=== PATIENT | female | born 1980 | race Caucasian/White ===

== ENCOUNTER 2024-11-05 15:03 | Emergency (ER) | payer OTHER ==
[~2024-11-05] VITALS: Ht 170.2 cm; Wt 72.0 kg
[2024-11-05 15:15] VITALS: O2SAT 100
[2024-11-05] MEDS: METOCLOPRAMIDE HCL 10MG TABLET PO ONE (18:18)
[2024-11-05] MEDS: ACETAMINOPHEN 325MG TABLET PO ONE (18:18)
[2024-11-05] MEDS: DIPHENHYDRAMINE 25MG CAPSULE PO ONE (18:19)
[2024-11-05 19:21] LABS: CLARITY URINE CLEAR (CLEAR); COLOR URINE YELLOW (YELLOW); GLUCOSE URINE NEGATIVE (NEGATIVE); KETONES URINE NEGATIVE (NEGATIVE); NITRITE URINE POSITIVE (NEGATIVE); OCCULT BLOOD URINE NEGATIVE (NEGATIVE); PH URINE 5.5 (4.5-8.0); PROTEIN URINE NEGATIVE (NEGATIVE); SPECIFIC GRAVITY URINE 1.015 (1.005-1.030); UROBILINOGEN URINE 0.2 E.U./dL (0.2-1.0)
[2024-11-05 19:22] LABS: BACTERIA URINE 2+; LEUKOCYTE ESTERASE URINE NEGATIVE (NEGATIVE); RBC URINE NONE SEEN /hpf (0-2); SQUAMOUS EPITHELIAL CELL URINE NONE SEEN /lpf (RARE/1+)
[2024-11-05 19:23] LABS: YEAST URINE NONE SEEN
[2024-11-05 19:30] VITALS: BP 108/76; PULSE 93; RESP 18; TEMP 36.89184; O2SAT 97
[2024-11-05] MEDS ORDERED: NAPR220C61 MT (19:48)
[2024-11-05] MEDS ORDERED: NITR-87 MT (19:48)
== END 2024-11-05 19:59 | disposition home or self-care (01) ==
LOC: ER 15:03
DX: N39.0 Urinary tract infection, site not specified (principal); R51.9 Headache, unspecified
CPT/HCPCS: 99284; 70450; 81003; 81025; 87804 ×2; Q0163; J8597